=== PATIENT | female | born 1965 | race Caucasian/White ===

== ENCOUNTER 2016-08-12 11:40 | Emergency (ER) | payer MEDICARE ==
--- NOTE | 2016-08-12 13:18 | UC ---
Throat Pain/Nasal Adarsh HPI - HPI Summary HPI Summary: NASAL CONGESTION, COUGH, PND, LEFT EAR PAIN X 2 DAYS FEEL FEVERISH , + CHILLS, - History of Current Complaint Chief Complaint: UCEar Stated Complaint: COUGH,THROAT,EARS Time Seen by Provider: 08/12/16 12:54 Hx Obtained From: Patient Onset/Duration: Gradual Onset, Lasting Days - 2, Still Present Severity: Moderate Cough: Nonproductive Associated Signs & Symptoms: Positive: Sinus Discomfort, Nasal Discharge, Fever. Negative: Wheezing, Rash - Allergies/Home Medications Allergies/Adverse Reactions: Allergies Allergy/AdvReac Type Severity Reaction Status Date / Time Albuterol Allergy Seizure Verified 08/12/16 12:57 and Vomiting Home Medications: Home Medications ALPRAZolam TAB* [Xanax TAB*] 2.5 mg PO Q8H PRN 08/12/16 [History Confirmed 08/12] Ascorbic Acid TAB* [Vitamin C TAB*] 500 mg PO DAILY 08/12/16 [History Confirmed 08/12/16] Budesonide/Formote 80/4.5(NF) [Symbicort 80/4.5 (NF)] 1 puff INH BID PRN [History Confirmed 08/12/16] Cholecalciferol TAB* [Vitamin D TAB*] 2,000 units PO DAILY 08/12/16 [History Confirmed 08/12/16] Cyclobenzaprine TAB* [Flexeril TAB*] 10 mg PO TID PRN 08/12/16 [History Confirmed 08/12/16] DULoxetine DR CAP* [Cymbalta CAP*] 60 mg PO DAILY 08/12/16 [History Confirmed ] Evening [place] Oil [Evening [place] Oil 500 mg] 500 mg PO DAILY 08/12/16 [ History Confirmed 08/12/16] Hydrocodone/Acetamin 10/325(NF [[place] 10/325 (NF)] 1 tab PO Q6H 08/12/16 [ History Confirmed 08/12/16] Ipratropium HFA INHALER* [Atrovent Hfa Inhaler*] 2 puff INH Q6H PRN 08/12/16 [ History Confirmed 08/12/16] Levothyroxine TAB* [Synthroid TAB*] 88 mcg PO DAILY 08/12/16 [History Confirmed 08/12/16] Meloxicam(NF) [Mobic(NF)] 7.5 mg PO DAILY 08/12/16 [History Confirmed 08/12/16] Montelukast Sodium TAB* [Singulair TAB*] 10 mg PO DAILY 08/12/16 [History Confirmed 08/12/16] [place]-3 Fatty Acids [[place] 3] 1 cap PO DAILY 08/12/16 [History Confirmed ] Pregabalin CAP(*) [Lyrica CAP(*)] 150 mg PO BID 08/12/16 [History Confirmed ] PMH/Surg Hx/FS Hx/Imm Hx Endocrine History Of: Reports: Thyroid Disease - Hypothyroidism Respiratory History Of: Reports: COPD - Surgical History Surgical History: Unable to Obtain/Confirm - Family History Known Family History: Negative: Diabetes - Social History Alcohol Use: None Substance Use Type: Marijuana, Prescribed Smoking Status (MU): Former Smoker Type: Cigarettes Amount Used/How Often: 1 1/2 PPD Length of Time of Smoking/Using Tobacco: 35 Years (On and Off) Have You Smoked in the Last Year: Yes When Did the Patient Quit Smoking/Using Tobacco: 525420 - Immunization History Most Recent Influenza Vaccination: October 2015 Review of Systems Constitutional: Fever, Chills, Fatigue Skin: Negative Eyes: Negative ENT: Sore Throat, Nasal Discharge Respiratory: Cough Cardiovascular: Negative Gastrointestinal: Negative Genitourinary: Negative All Other Systems Reviewed And Are Negative: Yes Physical Exam Triage Information Reviewed: Yes Appearance: Well-Appearing, No Pain Distress, Well-Nourished Vital Signs: Initial Vital Signs Temp 98.9 F 08/12/16 12:53 Pulse 98 08/12/16 12:53 Resp 18 08/12/16 12:53 BP 109/82 08/12/16 12:53 Pulse Ox 98 08/12/16 12:53 Vital Signs Reviewed: Yes Eyes: Positive: Conjunctiva Clear ENT: Positive: Normal ENT inspection, Hearing grossly normal, Pharynx normal, Nasal congestion, Nasal drainage, TMs normal. Negative: Pharyngeal erythema, TM bulging, TM dull, TM red Neck exam: Normal Neck: Positive: Supple, Nontender, No Lymphadenopathy Respiratory: Positive: Chest non-tender, Lungs clear, Normal breath sounds Cardiovascular: Positive: RRR, No Murmur, Pulses Normal Skin Exam: Normal Throat Pain/Nasal Course/Dx - Differential Dx/Diagnosis Provider Diagnoses: URI Discharge - Discharge Plan Condition: Stable Disposition: HOME Patient Education Materials: Upper Respiratory Infection (ED) Additional Instructions: VIRAL ILLNESS, NO NEED FOR ABX CONT. WITH REST, INCREASE FLUID, TYLENOL NEEDED FOR PAIN AND FEVER MAY TRY OTC MEDS MUCINEX AND FLONASE FOLLOW UP NEEDED
== END 2016-08-12 13:25 | disposition home or self-care (01) ==
LOC: UCCORT 11:40
DX: J06.9 Acute upper respiratory infection, unspecified (principal); E03.9 Hypothyroidism, unspecified; J44.9 Chronic obstructive pulmonary disease, unspecified; F12.90 Cannabis use, unspecified, uncomplicated; Z87.891 Personal history of nicotine dependence; Z88.8 Allergy status to other drugs, medicaments and biological substances
CPT/HCPCS: 99202; G0463

== ENCOUNTER 2017-04-15 21:15 | Emergency (ER) | payer MEDICARE ==
--- NOTE | 2017-04-15 22:11 | UC ---
Throat Pain/Nasal Adarsh HPI - History of Current Complaint Hx Last Menstrual Period: n/a <Greer Mei - Last Filed: 04/15/17 22:11> <Antony Robertson - Last Filed: 04/22/17 14:37> - History of Current Complaint Chief Complaint: UCRespiratory Stated Complaint: SORE THROAT Time Seen by Provider: 04/15/17 21:45 - Allergies/Home Medications Allergies/Adverse Reactions: Allergies Allergy/AdvReac Type Severity Reaction Status Date / Time Albuterol Allergy Seizure Verified 04/15/17 21:26 and Vomiting PMH/Surg Hx/FS Hx/Imm Hx - Surgical History Surgical History: Yes Surgery Procedure, Year, and Place: back surgery - Family History Known Family History: Negative: Diabetes - Social History Alcohol Use: Rare Substance Use Type: Marijuana, Prescribed Smoking Status (MU): Heavy Every Day Tobacco Smoker Type: Cigarettes Amount Used/How Often: 1/2 PPD Length of Time of Smoking/Using Tobacco: 35 Years (On and Off) Have You Smoked in the Last Year: Yes When Did the Patient Quit Smoking/Using Tobacco: [id number] - Immunization History Most Recent Influenza Vaccination: no <Greer Mei - Last Filed: 04/15/17 22:11> Previously Healthy: Yes <Antony Robertson - Last Filed: 04/22/17 14:37> Review of Systems ENT: Sore Throat All Other Systems Reviewed And Are Negative: Yes <Antony Robertson - Last Filed: 04/22/17 14:37> Physical Exam Vital Signs: Initial Vital Signs Temp 99 F 04/15/17 21:23 Pulse 92 04/15/17 21:23 Resp 16 04/15/17 21:23 BP 120/81 04/15/17 21:23 Pulse Ox 97 04/15/17 21:23 <Greer Mei - Last Filed: 04/15/17 22:11> Triage Information Reviewed: Yes Appearance: Well-Appearing, No Pain Distress, Well-Nourished Vital Signs: Initial Vital Signs Temp 99 F 04/15/17 21:23 Pulse 92 04/15/17 21:23 Resp 16 04/15/17 21:23 BP 120/81 04/15/17 21:23 Pulse Ox 97 04/15/17 21:23 Vital Signs Reviewed: Yes Eyes: Positive: Conjunctiva Clear ENT: Positive: Pharyngeal erythema, Nasal congestion. Negative: Tonsillar swelling, Tonsillar exudate, Trismus Neck: Positive: Supple, Nontender, No Lymphadenopathy Respiratory: Positive: Normal breath sounds, No respiratory distress, No accessory muscle use Cardiovascular Exam: Normal Abdominal Exam: Normal Musculoskeletal: Positive: Strength Intact, ROM Intact, No Edema Neurological: Positive: Alert, Muscle Tone Normal. Negative: Fatigued Psychological Exam: Normal Skin: Negative: rashes <Antony Robertson - Last Filed: 04/22/17 14:37> Throat Pain/Nasal Course/Dx - Differential Dx/Diagnosis Provider Diagnoses: pharyngitis. <Antony Robertson - Last Filed: 04/22/17 14:37> Discharge <Greer Mei - Last Filed: 04/15/17 22:11> <Antony Robertson - Last Filed: 04/22/17 14:37> - Discharge Plan Condition: Stable Disposition: HOME Prescriptions: predniSONE TAB* [Deltasone TAB*] 50 mg PO DAILY #5 tab MDD 1 Patient Education Materials: Pharyngitis (ED) Referrals: Non Staff,Doctor [Primary Care Provider] - Additional Instructions: Cepacol and Chloraseptic sprays are best for throat pain Prednisone 50mg daily in the MORNING Ibuprofen 600mg three times daily Ice cold drinks, ice chips and other cold foods Avoid food with sharp edges and salt If symptoms become worse, return to the or go to the ED
== END 2017-04-15 22:20 | disposition home or self-care (01) ==
LOC: UCCORT 21:15
DX: J02.9 Acute pharyngitis, unspecified (principal); Z88.8 Allergy status to other drugs, medicaments and biological substances; F12.90 Cannabis use, unspecified, uncomplicated; Z87.891 Personal history of nicotine dependence
CPT/HCPCS: 87651; 99212; G0463